=== PATIENT | male | born 1955 | race Caucasian/White ===

== ENCOUNTER → 2022-02-10 13:25 | Outpatient (CLI) | payer MEDICARE, SELFPAY ==
--- NOTE | 2022-02-10 13:33 | DI.RAD.S_ITS ---
PROCEDURE: XR LUMBAR SPINE MIN 4V INDICATIONS: BACK PAIN TECHNIQUE: 5 views of the lumbar spine acquired, including oblique views. COMPARISON: [facility], CT, CT LUMBAR SPINE WITHOUT CONTRAST, 09/13/2021, 8:05. FINDINGS: Bones: There is rightward scoliotic curvature. Posterior fusion is present from L3 through S1. Hardware appears intact. There is retrolisthesis of L2 on L3 measuring 7 mm, unchanged. Severe disc space narrowing is present at L2-3, moderate to severe foraminal narrowing is present from L3-4 through L5-S1. Soft tissues: Overlying bowel gas pattern is normal. No suspicious soft tissue calcifications. Neurostimulator is present. . IMPRESSION: Prominent postoperative and degenerative changes as above. Dictated by: Joelle Solorio M.D. on 02/10/2022 at 16:22 Approved by: Joelle Solorio M.D. on 02/10/2022 at 16:23
== END ==
PROVIDERS: PCP Internal Medicine; Referring Provider Physical Medicine & Rehabilitation; Visit Provider Physical Medicine & Rehabilitation
DX: M48.062 Spinal stenosis, lumbar region with neurogenic claudication (principal); M48.07 Spinal stenosis, lumbosacral region; M43.16 Spondylolisthesis, lumbar region; M54.9 Dorsalgia, unspecified; G62.89 Other specified polyneuropathies; T85.192S Other mechanical complication of implanted electronic neurostimulator of spinal cord electrode (lead), sequela; Z98.1 Arthrodesis status; Z96.653 Presence of artificial knee joint, bilateral
CPT/HCPCS: 72110; 99214